=== PATIENT | female | born 1940 | race Caucasian/White ===

== ENCOUNTER → 2016-06-17 | Outpatient (CLI) | payer MEDICARE, OTHER ==
[~2016-06-17] MED LIST: ACHD5005 PO; CHOL10002 PO; CYAN100053 IM; CYAN10007 PO; DICL100G13 TOP; EZET1TAB44 PO; GABA-486 PO; GEMF600T3 PO; LEVO125T6 PO; METF-380 PO; OMEG1CAP51 PO; VALS1TAB12 PO
--- OUTSIDE RECORDS SUMMARY | 2016-06-17 13:28 | XMS REPORT | Continuity of Care Document ---
Author Author [facility] Organization [facility] Address Unknown Phone Unavailable Care Team Providers Care Captain Cannery Tender Name Role Phone PCP Unavailable Source Comments Some departments are not documenting in the electronic medical record. If you do not see the information that you expected, contact Release of Information in the Health Information Management department at [phone] for further assistance in locating additional records.[facility] Active Allergies and Adverse Reactions No Known Allergies Current Medications Prescription Sig. Disp. Refills Start End Date Status Date METFORMIN HCL (METFORMIN Take by mouth. Active PO) GABAPENTIN PO Take 125 mg by mouth. Active GEMFIBROZIL PO Take by mouth. Active Levothyroxine 125 mcg cap Take by mouth. Active EZETIMIBE/SIMVASTATIN Take by mouth. Active (VYTORIN 10-40 PO) hydroCHLOROthiazide Take 12.5 mg by mouth Active (HYDRODIURIL) 12.5 mg every morning. 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 Clinical Otolaryngology Lis Rosario AUD Sensorineural hearing Support loss of right ear with restricted hearing of left ear (Primary Dx); Mixed conductive and sensorineural hearing loss of left ear with restricted hearing of right ear 05/21/2016 Prep for Case Otolaryngology Connie Ryan MD Social History Tobacco Use Types Packs/Day Years Used Date Former Smoker Cigarettes 0 Alcohol Use Drinks/Week oz/Week Comments No Last Filed Vital Signs Vital Sign Reading Time Taken Blood Pressure 125/66 05/21/2016 11:23 AM [employer] Pulse 92 05/21/2016 11:23 AM [employer] Temperature - - Respiratory Rate - - Height 1.6 m (5' 3") 05/21/2016 11:23 AM [employer] Weight 63.141 kg (139 lb 3.2 oz) 05/21/2016 11:23 AM [employer] Body Mass Index 24.66 05/21/2016 11:23 AM [employer] Oxygen Saturation - - Plan of Care Date Type Specialty Providers Description 07/13/2016 Surgery Connie Ryan MD [facility] [address] ([place]) [place] [place] [address] [phone] (Fax) 07/30/2016 Appointment Otolaryngology Connie Ryan MD [address] [place] [address] [phone] (Fax) Health Maintenance Due Date Last Done Comments Physical (Comprehensive) 1947 Exam Pertussis Vaccine 1952 Tetanus Vaccine 1958 Breast Cancer Screening 1981 Colorectal Cancer 08/13/1991 Screening Shingles Vaccine 2001 Osteoporosis Screening 2006 Prevnar/Pneumovax (#1) 2006 Influenza Vaccine 02/06/2016 Procedures from Last 3 Months Procedure Name Priority Date/Time Associated Diagnosis Comments HEARING TEST-SCAN 06/04/2016 Results for this 9:08 AM [employer] procedure are in the results section. AUDIOMETRY WITH Routine 05/21/2016 TYMPANOMETRY 12:00 AM [employer] Results from Last 3 Months HEARING TEST-SCAN (06/04/2016 9:08 AM) Narrative Ordered by an unspecified provider. AUDIOMETRY WITH TYMPANOMETRY (05/21/2016)
--- NOTE | 2016-06-17 15:27 | Diagnostic Imaging Report ---
Three views of the left knee. INDICATION: Left knee pain. FINDINGS: There is no fracture, dislocation or radiopaque foreign body. There is no suprapatellar effusion identified. No significant arthritic changes seen. IMPRESSION: Unremarkable exam. Dictated by: Dictated on workstation # [id number]
--- NOTE | 2016-06-17 15:41 | Diagnostic Imaging Report ---
PROCEDURE: MRI lumbar spine. TECHNIQUE: Multiplanar, multisequence MRI of the lumbar spine was performed without contrast. INDICATION: Back pain. FINDINGS: The vertebral body heights are preserved. The alignment at the posterior spinal line is satisfactory. The discs demonstrate desiccation at all levels. There is a Schmorl's node with sclerotic changes seen at the upper aspect of L2 vertebral body. A similar finding in the lower endplate of the same vertebra is also noted. Mild marrow edema around L1/L2 disc is also noted. No suspicious marrow signal abnormality is seen. Small lesions with fat intensity components in L1 and T12 vertebral bodies are suggestive of hemangiomas. The cauda equina and conus medullaris appear grossly unremarkable. The conus terminates at mid L2 level. T12/L1: There is a minimal disc herniation. No spinal canal or foraminal stenosis. L1/2: There is mild disc bulge and mild facet hypertrophy. No spinal canal or foraminal stenosis. L2/3: There is a mild diffuse disc bulge and mild facet hypertrophy. No central canal stenosis. There is minimal narrowing of the lateral recess bilaterally. No significant foraminal stenosis. L3/4: There is a diffuse disc bulge and bilateral moderate facet hypertrophy. No central canal stenosis. There is bilateral lateral recess stenosis mild on the left and moderate on the right side abutting the descending L4 nerve roots. The foramina demonstrate mild to moderate narrowing on the right side and no significant narrowing on the left. L4/5: There is a diffuse disc bulge and mild to moderate facet hypertrophy. No central canal stenosis. There is mild narrowing of the lateral recess bilaterally. The foramina demonstrate mild stenosis on the right side and mild to moderate stenosis on the left. L5/S1: There is a minimal disc bulge and moderate facet hypertrophy. No central canal or lateral recess stenosis. The foramina demonstrate moderate stenosis bilaterally. IMPRESSION: There is disc and facet degenerative changes at multiple levels. There is multilevel mild to moderate stenosis involving the lateral recess and the foramina as described. Dictated by: Dictated on workstation # [id number]
== END ==
LOC: RAD 13:26
PROVIDERS: ATTEND Nurse Practitioner Family
DX: M54.16 Radiculopathy, lumbar region (principal)
CPT/HCPCS: 72148; 73562

== ENCOUNTER 2016-10-21 18:43 | Emergency (ER) | payer MEDICARE, OTHER ==
[~2016-10-21] VITALS: Ht 160 cm; Wt 63.5 kg
[2016-10-21] MEDS ORDERED: HYDR12.56 (19:05)
[2016-10-21] MEDS ORDERED: DULA0.75 (19:05)
[2016-10-21] MEDS ORDERED: SIMV40TA4 (19:05)
[2016-10-21] MEDS ORDERED: EZET10TA5 (19:05)
--- NOTE | 2016-10-21 19:25 | Diagnostic Imaging Report ---
INDICATION: Right hand injury 3 views of the right middle finger show no fracture, dislocation or other acute abnormalities. IMPRESSION: Negative right middle finger Dictated by: Dictated on workstation # [id number]
[2016-10-21] MEDS ORDERED: TRAM50TA2 PO (20:28)
[2016-10-21] MEDS ORDERED: RX-TRAMADOL 50 MG (ULTRAM) TAB PPK#4 PO STA (20:30)
--- NOTE | 2016-10-21 20:30 | ED Upper Extremity ---
General Chief Complaint: Upper Extremity Stated Complaint: R FINGER PAIN Nursing Triage Note: CAUGHT FINGER IN DOOR WINDOW Nursing Sepsis Screen: No Definite Risk Source: patient Exam Limitations: no limitations History of Present Illness Time seen by provider: 20:07 Initial Comments 76-year-old female patient presents to the emergency department with complaints of right third finger injury and pain. Patient states she rolled the middle finger up in the car window. Reports yanking the finger from the window without rolling the window down. Onset: this evening Pain/Injury Location: right 3rd finger Method of Injury: other (see HPI) Modifying Factors: Improves With Immobilization, Worse With Movement Allergies and Home Medications Allergies Coded Allergies: No Known Drug Allergies (Unverified , 11/15/13) Home Medications Diclofenac Sod 100 Gm Gel, 100 GM TOP NEEDED PRN for NEUROPATHY, (Reported) Dulaglutide 0.75 Mg/0.5 Ml Pen.injctr, #6 (Reported) Ezetimibe 10 Mg Tablet, #90 (Reported) Gabapentin 100 Mg Capsule, 300 MG PO PM, (Reported) Gabapentin 100 Mg Capsule, 200 MG PO AM, (Reported) Hydrochlorothiazide 12.5 Mg Tablet, #30 (Reported) Levothyroxine Sodium 125 Mcg Tablet, 1 EACH PO DAILY, (Reported) Metformin Hcl 1,000 Mg Tablet, 1 EACH PO BID WITH MEALS, (Reported) Simvastatin 40 Mg Tablet, #90 (Reported) Tramadol HCl 50 Mg Tablet, 50 MG PO Q4H PRN for pain, #14 Ref 0 Prescribed by: HAL BLANC on 10/21/162027 Constitutional: no symptoms reported Musculoskeletal: see HPI, joint pain, joint swelling Skin: change in color (ecchymosis rt 3rd finger) Psychiatric/Neurological: Denies Numbness, Denies Paresthesia, Denies Tingling , Denies Weakness All Other Systems Reviewed Negative Unless Noted: Yes (Negative excepted noted.) Past Yffweml-Njsirz-Cqmbvv Hx Patient Social History Alcohol Use: Denies Use Recreational Drug Use: No Smoking Status: Never a Smoker 2nd Hand Smoke Exposure: No Recent Foreign Travel: No Contact w/Someone Who Travel: No Recent Infectious Disease Expo: No Recent Hopitalizations: No Immunizations Up To Date Tetanus Booster (TDap): Unknown Date of Pneumonia Vaccine: Mar 07, 2010 Seasonal Allergies Seasonal Allergies: No Surgeries HX Surgeries: Yes (GASTRIC BYPASS, ) Respiratory Hx Respiratory Disorders: Yes Respiratory Disorders: Asthma Cardiovascular Cardiac Disorders: High Cholesterol, Hypertension Neurological Hx Neurological Disorders: No Reproductive System : No Hx Reproductive Disorders: No TOBACCO BLENDER History: Menopausal Genitourinary Hx Genitourinary Disorders: No Gastrointestinal Hx Gastrointestinal Disorders: No Musculoskeletal Hx Musculoskeletal Disorders: No Endocrine Hx Endocrine Disorders: Yes Endocrine Disorders: Hypothyroidsim, Diabetes, Non-Insulin dep HEENT HX ENT Disorders: Yes (GLASSES) Loss of Vision: Denies Hearing Impairment: Hard of Hearing Cancer Hx Cancer: No Psychosocial Hx Psychiatric Problems: No Integumentary HX Skin/Integumentary Disorder: Yes Blood Transfusions Hx Blood Disorders: No Adverse Reaction to a Blood Tr: No Reviewed Nursing Assessment Reviewed/Agree w Nursing PMH: Yes Family Medical History Significant Family History: No Pertinent Family Hx Family Medial History: Cancer 19 MOTHER G8 BROTHER G8 SISTER Family history: Cardiovascular disease 19 MOTHER Family history: Diabetes mellitus 19 MOTHER History of - disorder G8 BROTHER (MS ) Physical Exam Vital Signs Vital Sign - Last 12Hours 10/21/16 19:05 Temp 98.8 Pulse 90 Resp 18 B/P (MAP) 109/83 Pulse Ox 95 O2 Delivery Room Air Capillary Refill : Less Than 3 Seconds General Appearance: WD/WN, no apparent distress Cardiovascular: normal peripheral pulses Elbow/Forearm: normal inspection, non-tender, no evidence of injury, normal ROM , Right Wrist: Yes normal inspection, Yes non-tender, Yes no evidence of injury, Yes normal ROM Hand: Right, bone tenderness (distal rt 3rd finger), ecchymosis (rt 3rd finger nail fold ecchymosis. (-) subungual hematoma.), limited ROM (rt distal 3rd finger extensor tendons difficult to evaluate due to the amount of swelling at the DIP joint. ), nail injury (rt 3rd finger), soft tissue tenderness (rt 3rd finger), swelling (distal rt 3rd finger.) Neurologic/Tendon: normal sensation, responds to pain, other (rt distal 3rd finger extensor tendons difficult to evaluate due to the amount of swelling at the DIP joint. ) Neurologic/Psychiatric: alert, normal mood/affect, oriented x 3 Skin: No cyanosis, No cool, ecchymosis (rt 3rd finger nail fold ecchymosis. (- ) subungual hematoma.) Progress/Results/Core Measures Results/Orders My Orders Orders - HAL BLANC Finger(S) (10/21/16 19:02) Rx-Tramadol Hcl (Rx-Ultram) (10/21/16 20:30) Vital Signs/I&O Vital Sign - Last 12Hours 10/21/16 10/21/16 19:05 20:37 Temp 98.8 98.5 Pulse 90 82 Resp 18 18 B/P (MAP) 109/83 Pulse Ox 95 97 O2 Delivery Room Air Blood Pressure Mean: 92 Diagnostic Imaging Diagonstic Imaging: Xray Plain Films/CT/US/NM/MRI: other (rt 3rd finger) Comments FINGER(S) INDICATION: Right hand injury 3 views of the right middle finger show no fracture, dislocation or other acute abnormalities. IMPRESSION: Negative right middle finger Dictated by: Dictated on workstation # [id number] Reviewed: Reviewed by Me (radiology report reviewed by me) Departure Communication Progress Notes Diagnostic findings discussed with the patient. Patient placed in an AlumaFoam finger splint. Plan for discharge to home. Patient instructed follow-up with her primary care physician for recheck if no improvement in symptoms in 7-10 days. Impression Impression: Primary Impression: Contusion of middle finger with damage to nail Qualified Codes: S60.131A - Contusion of right middle finger with damage to nail, initial encounter Disposition: HOME, SELF-CARE Condition: Improved Departure-Patient Inst. Decision time for Depature: 20:25 Referrals: IVCKEY BECKETT DO (PCP) Primary Care Physician TANVI SCHWAB (Family) Primary Care Physician Patient Instructions: Contusion (DC), NAIL INJURY Add. Discharge Instructions: All discharge instructions reviewed with patient and/or family. Voiced understanding. Medications as directed. Tylenol over the counter as directed for pain. Motrin 400 mg by mouth every 4-6 hours as needed for pain. Elevate right hand on pillows. Ice pack for 20 minute intervals as needed for pain. Finger splint as instructed. Follow-up with your family practitioner if needed. Return to the emergency department for worsened symptoms or any other concerns. Scripts Tramadol HCl (Tramadol HCl) 50 Mg Tablet 50 MG PO Q4H Y for pain, #14 TAB 0 Refills Prov: HAL BLANC 10/21/16 Work/School Note: Work Release Form Date Seen in the Emergency Department: October 21, 2016 Return to Work: October 22, 2016 Other Restrictions Listed Below: left hand activities x7 days HAL BLANC October 21, 2016 20:30
[2016-10-21 20:37] VITALS: BP 112/84
== END 2016-10-21 20:39 | disposition home or self-care (01) ==
LOC: EDUNIT# 18:43 → ER 18:45
DX: S60.131A Contusion of right middle finger with damage to nail, initial encounter (principal); E11.9 Type 2 diabetes mellitus without complications; Z79.84 Long term (current) use of oral hypoglycemic drugs; Z98.84 Bariatric surgery status; W23.0XXA Caught, crushed, jammed, or pinched between moving objects, initial encounter; V48.1XXA Car passenger injured in noncollision transport accident in nontraffic accident, initial encounter; Y92.810 Car as the place of occurrence of the external cause; Y99.8 Other external cause status
CPT/HCPCS: 29130; 73140

== ENCOUNTER → 2016-12-10 | Outpatient (CLI) | payer MEDICARE, OTHER ==
[~2016-12-10] MED LIST changes: +DULA0.75; +EZET10TA5; +HYDR12.56; +SIMV40TA4; +TRAM50TA2 PO
--- NOTE | 2016-12-11 09:16 | Diagnostic Imaging Report ---
EXAM: Bilateral screening mammogram The current study was also evaluated with a Computer Aided Detection (CAD) system. Indication: Screening. No current complaints stated on the questionnaire. COMPARISON: 08/06/2015 FINDINGS: The breasts are composed of heterogeneously dense parenchyma which would decrease mammographic sensitivity. There is an asymmetry along the medial aspect of the left CC projection measuring 1 cm in size. There is questionable correlate in the inferior aspect of the left MLO view or separate asymmetry seen. The right breast is dense with no definitive change. Stable benign-appearing calcifications noted. IMPRESSION: Dense breasts. Focal compression views to medial and inferior left breast asymmetries and bilateral ultrasound evaluation recommended. BI-RADS 0. Dictated by: Dictated on workstation # [id number]
== END ==
LOC: RAD 13:39
PROVIDERS: ATTEND Nurse Practitioner Community Health
DX: Z12.31 Encounter for screening mammogram for malignant neoplasm of breast (principal)
CPT/HCPCS: 77067

== ENCOUNTER → 2016-12-21 | Outpatient (CLI) | payer MEDICARE, OTHER ==
--- NOTE | 2016-12-21 19:03 | Diagnostic Imaging Report ---
EXAM: Bilateral breast ultrasound. INDICATION: Left breast asymmetries and bilateral dense breasts. FINDINGS: The four-quadrant central retroareolar regions of each breast were scanned with no underlying abnormality. IMPRESSION: Negative study. The asymmetries seen in the left breast are likely related to summation artifact of parenchyma. Six-month followup left mammogram is recommended to reevaluate. BI-RADS 2. ACR BI-RADS Category 2: Benign findings. Result letter will be mailed to the patient. Note: At least 10% of breast cancer is not imaged by mammography. Dictated by: Dictated on workstation # [id number]
--- NOTE | 2016-12-21 19:36 | Diagnostic Imaging Report ---
Left breast diagnostic mammogram. The current study was also evaluated with a Computer Aided Detection (CAD) system. INDICATION: Asymmetries in the periareolar and medial aspects of the left breast. FINDINGS: Tomographic and 2-D views are obtained in the true lateral projection and focal compression views of the areas of asymmetries. Additional views demonstrate again the heterogeneously dense parenchyma in the breasts with no definitive underlying mass seen. IMPRESSION: Findings are suggestive of summation artifacts probably explaining the asymmetries seen. Ultrasound evaluation pending. ACR BI-RADS Category 0: Incomplete. (Needs additional imaging evaluation). Result letter will be mailed to the patient. Note: At least 10% of breast cancer is not imaged by mammography. Dictated by: Dictated on workstation # [id number]
== END ==
LOC: RAD 13:39
PROVIDERS: ATTEND Nurse Practitioner Community Health
DX: N64.89 Other specified disorders of breast (principal)

== ENCOUNTER → 2017-02-01 | Outpatient (CLI) | payer MEDICARE, OTHER ==
[~2017-02-01] VITALS: Ht 160 cm; Wt 65.4 kg
[~2017-02-01] MED LIST changes: +DULA0.75 SQ; +EZET10TA5 PO; +HYDR12.56 PO; +LEVO112T55 PO; +METF-479 PO; +SIMV40TA4 PO
[2017-02-01 15:18] VITALS: BP 122/71
== END ==
LOC: PREOP 15:04
PROVIDERS: ATTEND Podiatrist Foot & Ankle Surgery
DX: Z01.818 Encounter for other preprocedural examination (principal); M20.41 Other hammer toe(s) (acquired), right foot
CPT/HCPCS: 87081

== ENCOUNTER 2017-02-05 10:45 | Day surgery (SDC) | payer MEDICARE, OTHER ==
[~2017-02-05] VITALS: Ht 160 cm; Wt 65.4 kg
--- OUTSIDE RECORDS SUMMARY | 2017-02-05 10:50 | XMS REPORT | Clinical Summary ---
Author Author [facility] Organization [facility] Address Unknown Phone Unavailable Care Team Providers Care Lock Tender Name Role Phone PCP Unavailable Source Comments Some departments are not documenting in the electronic medical record. If you do not see the information that you expected, contact Release of Information in the Health Information Management department at [phone] for further assistance in locating additional records.[facility] Allergies No Known Allergies Current Medications Prescription Sig. Disp. Refills Start End Date Status Date METFORMIN HCL (METFORMIN Take 500 mg by mouth. 2 Active PO) tabs qAM and 1 tab qHS GABAPENTIN PO Take 125 mg by mouth. 2 Active tabs qAM and 3 tabs qHS Levothyroxine 125 mcg cap Take by mouth. Active EZETIMIBE/SIMVASTATIN Take by mouth at bedtime Active (VYTORIN 10-40 PO) daily. hydroCHLOROthiazide Take 12.5 mg by mouth Active (HYDRODIURIL) 12.5 mg every morning. tablet cyanocobalamin(DIL) Inject into the muscle Active (VITAMIN B-12, RUBRAMIN) every 7 days. 100 mcg/mL vitamins, multi PED Chew 1 Gummy by mouth Active chewable daily. FLAXSEED OIL (OMEGA 3 PO) Take 1 Tab by mouth Active daily. CHOLECALCIFEROL (VITAMIN Take 1 Tab by mouth Active D3) (VITAMIN D3 PO) daily. GARLIC PO Take 1 Tab by mouth Active daily. 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, neural 05/21/2016 Social History Tobacco Use Types Packs/Day Years Used Date Former Smoker Cigarettes 3 25 Quit: 06/07/1985 Smokeless Tobacco: Never Used Alcohol Use Drinks/Week oz/Week Comments No Sex Assigned at Date Recorded Not on file Last Filed Vital Signs Vital Sign Reading Time Taken Blood Pressure 126/75 07/30/2016 1:39 PM [employer]CHIT[employer] Pulse 77 07/30/2016 1:39 PM [employer]CH[employer] Temperature 36.6 C (97.9 F) 07/13/2016 11:54 AM [employer]CH[employer] Respiratory Rate - - Oxygen Saturation 97% 07/13/2016 12:30 PM [employer]CH[employer] Inhaled Oxygen - - Concentration Weight 66.9 kg (147 lb 6.4 oz) 07/30/2016 1:39 PM [employer]CH[employer] Height 160 cm (5' 3") 07/30/2016 1:39 PM [employer]CH[employer] Body Mass Index 26.11 07/30/2016 1:39 PM 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
[2017-02-05 10:55] VITALS: BP 84/64
[2017-02-05] MEDS ORDERED: CATHETER FLUSH 10 ML SYR IV PRN (11:00)
[2017-02-05] MEDS ORDERED: ceFAZolin 1 GM/NS 50 ML IVPB IV ONE ×2 (11:00)
[2017-02-05] MEDS ORDERED: LACTATED RINGERS 1,000 ML IV PRN (11:38)
[2017-02-05] MEDS ORDERED: proPOfol 200 MG/20 ML (DIPRIVAN) VIAL IV ONE (11:38)
[2017-02-05] MEDS ORDERED: MIDAZOLAM 2 MG/2 ML (VERSED) VIAL ONE (11:39)
[2017-02-05] MEDS ORDERED: fentaNYL INJECTION 100 MCG/2 ML AMP ONE (11:40)
--- NOTE | 2017-02-05 11:44 | Physical Therapy Pre-Op Eval ---
PT Pre-Surgical Assessment Type of Surgery Type of Surgery: /5th hammer toe repair right foot Prior Level of Function Current Living Status: Alone Locomotion (Upon Admit): Independent PLOF DME: None Subjective Subjective Patient reports she will have family with her upon dismissal. Home: Apartment Current Living Status: Alone Entry Into Home: Stairs With Railing Steps Into Home: 2 Steps Accessories: Railing Present Motor Control Motor Control: Motor Control WNL ROM ROM: WFL, except focal deficit Strength Strength: WFL Transfers Transfers (B, C, W/C) (FIM): 7 Gait Gait (FIM): 5 Gait Distance (FIM): 5 Gait Assistive Device: FWW Weight Bearing Restriction: Non Weight Bearing Location Restriction: R LE WBS (Ord/Comment): knee scooter and FWW NWB right foot Treatment Rendered Treatment: Patient instructed in assistive device, supported ambulation. Patient instructed in and given written program of ROM and strengthening exercises to be preformed post-op. Patient instructed in movement precautions where applicable. Patient demonstrates understandings of post-operative therapy protocol including gait pattern and exercise program. Pre-operative instruction completed; await physical therapy orders after surgery. Treatment Goal Met: Yes Assessment Goals Acheived: I Ambulation w/ FWW, Understands P-op Precaut Charges/GCodes Time In: 1100 Time Out: 1115 Total Billed Treatment Time: 15 Total Billed Treatment 1 visit EVLowC 15 min G Codes Necessary: Yes PT/OT Therapy GCodes Therapy Functional Limitation: Physical Therapy Test(s)/Tool used to determine: Level of Assistance Scale Functional Limitation-Current Charge Code: MOBCUR Modifier: CI Functional Limitation-Goal Charge Code: MOBGOAL Modifier: CI Functional Limitation-D/C Charge Codes: MOBDC Modifier: CI JONO BUTLER PT Feb 05, 2017 11:44
[2017-02-05] MEDS ORDERED: LIDOCAINE 1% INJ 20 ML (XYLOCAINE) VIAL ONE (11:47)
[2017-02-05] MEDS ORDERED: BUPIVACAINE 0.5% 30 ML (SENSORCAINE) VIAL ONE (11:47)
--- NOTE | 2017-02-05 11:51 | Progress Note-Pre Operative ---
Pre-Operative Progress Note H&P Reviewed The H&P was reviewed, patient examined and no changes noted. Date Seen by Provider: Feb 05, 2017 Time Seen by Provider: 11:50 Date H&P Reviewed: Feb 05, 2017 Time H&P Reviewed: 11:50 Pre-Operative Diagnosis: Hammertoes 4th and 5th right foot. JESÚS WATTS DPM Feb 05, 2017 11:51 am
[2017-02-05] MEDS ORDERED: LIDOCAINE PF 2% 5 ML (XYLOCAINE) VIAL ONE (13:09)
[2017-02-05] MEDS ORDERED: LACTATED RINGERS 1,000 ML IV SCH (13:11)
--- NOTE | 2017-02-05 13:11 | Progress Note-Post Operative ---
Post-Operative Progess Note Surgeon (s)/Interstate Bus Dispatcher (s) Surgeon JESÚS WATTS DPM Interstate Bus Dispatcher: NONE Pre-Operative Diagnosis Hammertoes 4th and 5th right foot. Post-Operative Diagnosis Same Procedure & Operative Findings Date of Procedure 02/05/17 Procedure Performed/Findings Arthroplasty (reduction of hammertoes) right 4th and 5th toes Anesthesia Type MAC Estimated Blood Loss Estimated blood loss (mL): Minimal Specimens/Packing Specimens Removed None JESÚS WATTS DPM Feb 05, 2017 1:10 pm
[2017-02-05] MEDS ORDERED: CEPH500C PO (13:13)
[2017-02-05] MEDS ORDERED: HYDR-3812 PO (13:13)
[2017-02-05] MEDS ORDERED: HYDROcodone/APAP 5 MG/325 MG (LORTAB) TAB PO PRN (13:15)
[2017-02-05 13:35] VITALS: BP 163/67
[2017-02-05 14:05] VITALS: BP 104/65
[2017-02-05 14:15] VITALS: BP 104/65
--- NOTE | 2017-02-05 14:49 | Diagnostic Imaging Report ---
INDICATION: Postop. FINDINGS: There has been resection of the head of the fourth and fifth proximal phalanges. The interphalangeal joints that remain show diffuse arthritic disease as does the first MP joint. No changes are seen to indicate osteomyelitis. Overall alignment is good. IMPRESSION: Resection of the distal head of the fourth and fifth proximal phalanges in the right foot. Dictated by: Dictated on workstation # [id number]
--- NOTE | 2017-02-06 10:06 | OPERATIVE REPORT ---
DATE OF SERVICE: 02/05/2017 SURGEON: Courtney Watts DPM PREOPERATIVE DIAGNOSIS: Hammer digit syndrome, right fourth and fifth digits. POSTOPERATIVE DIAGNOSIS: Hammer digit syndrome, right fourth and fifth digits. PROCEDURE: Arthroplasty right fourth and fifth digits (reduction of hammertoes). WOUND CLASS: Clean. ANESTHESIA: Monitored anesthesia care. HEMOSTASIS: Pneumatic ankle tourniquet at 250 mmHg. 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 Conservative therapy has met with unsatisfactory results, but we have finally gotten the ulceration to heal and so she is agreeable to surgical intervention at this point to help prevent further ulcerations and complications. No guarantees were extended to the patient and she is willing to proceed. DESCRIPTION OF PROCEDURE: The patient was brought back to the operating table and placed in a secure supine position. Appropriate timeout was performed. Anesthesia was achieved utilizing 12 mL of 1:1 mixture of 1% Xylocaine and 0.5% Marcaine injected in a local infusion to the fourth and fifth rays of the right foot. A pneumatic ankle tourniquet was placed on the right lower extremity over several layers of padding. The right foot was then prepped and draped in a normal sterile manner. The right foot was then elevated and allowed to exsanguinate after which the tourniquet was inflated to 250 mmHg. Attention was then directed to the dorsal aspect of the right fourth toe where a 2 cm longitudinal linear incision was created. The incision was deepened in the same plane with great care to identify and retract all vital neurovascular structures. Only necessary blood vessels were cauterized as encountered. The incision was deepened sharply down to the extensor tendon where a transverse tenotomy was performed. The extensor tendon was reflected proximally and the medial and lateral collateral ligaments released exposing the hypertrophic head of the proximal phalanx which was resected utilizing power sagittal saw. The wound was flushed with copious amounts of normal saline and closure was then performed in layers. Deep closure was performed with 4-0 Vicryl, superficial with 4-0 Vicryl and skin closure with 4-0 Prolene in a horizontal mattress type stitch. Attention was then directed to the right fifth toe where adductovarus contracture was noted. A 1 cm curvilinear incision was created from proximal lateral to distal medial. A second incision was made similar to the first and a skin island was then removed in total overlying the head of the proximal phalanx. The incision was deepened down to the extensor tendon where a transverse tenotomy was performed. The medial and lateral collateral ligaments were also released. This exposed the hypertrophic head of the proximal phalanx which was resected with a power sagittal saw. The wound was flushed with copious amounts of normal saline. These 2 procedures reduced the tension in between the 2 digits very nicely. Closure was then performed to the right fifth toe with 4-0 Vicryl for deep and superficial closure as well as 4-0 Prolene in a simple interrupted type stitch. Due to the orientation of the incision and the skin removed, the adductovarus rotation of the toe was reduced nicely. The wound was then dressed with Betadine-soaked Adaptic. The tourniquet was released noting the appropriate capillary fill time to all digits of the right foot. Sterile 4x4s, sterile Kerlix and Coban wrap was then applied. The patient was instructed to be partial weightbearing with crutches or walker postoperatively. She was given a prescription for Keflex as well as Vicodin. She is to follow up in my office in one week period of time or sooner if necessary. Job ID: [id number] DocumentID: [id number] Dictated Date: 02/05/2017 13:18:56 Commercial Maintenance Technician Date: 02/06/2017 10:06:13 Dictated By: COURTNEY WATTS DPM
== END 2017-02-05 14:15 | disposition home or self-care (01) ==
LOC: SDC 10:45
PROVIDERS: ATTEND Podiatrist Foot & Ankle Surgery
DX: M20.41 Other hammer toe(s) (acquired), right foot (principal); E11.9 Type 2 diabetes mellitus without complications; I10 Essential (primary) hypertension; E78.5 Hyperlipidemia, unspecified; Z79.899 Other long term (current) drug therapy; Z87.891 Personal history of nicotine dependence
CPT/HCPCS: 73620; 82962

== ENCOUNTER → 2018-10-28 | Outpatient (CLI) | payer MEDICARE ==
[~2018-10-28] MED LIST changes: +CEPH500C PO
== END ==
LOC: CARD 09:24
PROVIDERS: ATTEND Internal Medicine Cardiovascular Disease
DX: R00.2 Palpitations (principal); R06.02 Shortness of breath; I08.3 Combined rheumatic disorders of mitral, aortic and tricuspid valves; E11.9 Type 2 diabetes mellitus without complications
CPT/HCPCS: 93306

== ENCOUNTER → 2018-11-02 | Outpatient (CLI) | payer MEDICARE ==
[~2018-11-02] MED LIST changes: +CATHETER FLUSH 10 ML SYR IV PRN
[2018-11-02 08:46] VITALS: BP 130/70
[2018-11-02 08:52] VITALS: BP 117/69
--- NOTE | 2018-11-02 17:17 | STRESS TEST ---
DATE OF SERVICE: 11/02/2018 EXERCISE MYOVIEW STRESS TEST REPORT REFERRING PHYSICIAN: Dr. Anige Porter, [facility]. Baseline heart rate is 84, baseline blood pressure 146/68. Baseline EKG is sinus rhythm with no ischemic changes. In summary, the patient was injected with 10.4 mCi of technetium-99 Myoview and the resting images were obtained. Then, the patient started exercising with a baseline heart rate, blood pressure and EKG mentioned above. The patient was able to exercise for a total of 4 minutes on standard Xavier protocol. With peak exercise level, the patient achieved over 85% of maximum expected heart rate. There were minimal nondiagnostic EKG changes. Blood pressure was 194/59. During recovery, heart rate and blood pressure returned to baseline. EKG returned to baseline. The resting and stress images were reviewed and compared in the short axis, horizontal long axis, and vertical long axis views. Review of the images showed breast attenuation with typical female pattern. No significant ischemia or infarction. SSS is 3, SDS 3, TID value 0.91. On the gated images, the left ventricle appeared to be normal size with normal contractility. Calculated ejection fraction is 67%. CONCLUSION: 1. Fair exercise tolerance, a total of 4 minutes on standard Xavier protocol, achieving 85% of maximum expected heart rate. 2. Nondiagnostic EKG changes with exercise returned to baseline during recovery. 3. Hypertensive response to exercise with peak blood pressure 194/59, returned to baseline during recovery. 4. Breast attenuation with no significant ischemia or infarction on SPECT images. 5. Normal left ventricular size with normal contractility. Calculated ejection fraction is 67%. Job ID: [id number] DocumentID: [id number] Dictated Date: 11/02/2018 16:43:18 Radiation Engineer Date: 11/02/2018 17:16:38 Dictated By: KAREN RUSS MD
== END ==
LOC: CARD 06:59
PROVIDERS: ATTEND Internal Medicine Cardiovascular Disease
DX: R00.2 Palpitations (principal); R06.02 Shortness of breath; I08.1 Rheumatic disorders of both mitral and tricuspid valves; I51.7 Cardiomegaly; E11.9 Type 2 diabetes mellitus without complications
CPT/HCPCS: 78452; 93017

== ENCOUNTER → 2020-05-14 | Outpatient (CLI) | payer MEDICARE ==
[~2020-05-14] MED LIST changes: -CATHETER FLUSH 10 ML SYR IV PRN; +EZET10TA17; +EZET10TA17 PO; -EZET10TA5; -EZET10TA5 PO; +SIMV40TA25; +SIMV40TA25 PO; -SIMV40TA4; -SIMV40TA4 PO; -TRAM50TA2 PO; +TRM50T PO
--- NOTE | 2020-05-14 14:42 | Diagnostic Imaging Report ---
INDICATION: Routine screening. COMPARISON is made with prior mammograms from 01/25/2018 and 12/10/2016. 2-D and 3-D bilateral screening mammography was performed with CAD. Both breasts remain heterogeneously dense, limiting the sensitivity of mammography. Scattered benign calcifications are noted bilaterally. No spiculated mass or malignant appearing microcalcifications are seen. Axillae are unremarkable. IMPRESSION: BI-RADS Category 2. No mammographic features suspicious for malignancy are identified. ACR BI-RADS Category 2: Benign findings. Result letter will be mailed to the patient. Note: At least 10% of breast cancer is not imaged by mammography. Dictated by: Dictated on workstation # [id number]
--- NOTE | 2020-05-14 14:48 | Diagnostic Imaging Report ---
INDICATION: Postmenopausal. COMPARISON: None. FINDINGS: The bone mineral density of the hips and spine was measured. There are no prior studies available for comparison. The T-score for the spine is -0.1. The total T-score for the left hip is -0.8 and for the right hip -0.6. The T-score for the right femoral neck is -1.0. All of these T-score values are within normal limits. However, the T-score for left femoral neck is -1.1. This does indicate mild osteopenia. AP Spine L1-L4: [BMD (g/cm2): 1.191] [T-Score: -0.1] [Z-Score: 1.6] [BMD Previous: NA] [BMD % Change: NA] LT Hip Neck: [BMD (g/cm2): 0.888] [T-Score: -1.1] [Z-Score: 0.9] LT Hip Total: [BMD (g/cm2):0.908] [T-Score:-0.8] [Z-Score: 1.1] [BMD Previous: NA] [BMD % Change: NA] RT Hip Neck: [BMD (g/cm2):0.900] [T-Score:-1.0] [Z-Score:1.0] RT Hip Total: [BMD (g/cm2):0.936] [T-score:-0.6] [Z-Score:1.3] [BMD Previous:NA] [BMD % Change:NA] *Indicates significant change from prior examination based on 95% confidence level. World Health Organization criteria for BMD interpretation classify patients as Normal (T-score at or above -1.0), Osteopenic (T-score between -1.0 and -2.5) or Osteoporotic (T-score at or below -2.5). LIMITATIONS AND MODIFICATION: None. FRACTURE RISK (FRAX SCORE): The ten year probability of (%): Major Osteoporotic Fracture: [11.5] Hip Fracture: [2.2] IMPRESSION: 1. There is mild osteopenia of the left femoral neck. The T-score values for the spine, the hips and the right femoral neck are within normal limits, however. 2. See below National Osteoporosis Foundation guidelines on when to potentially initiate pharmacologic therapy. Based on the National Osteoporosis Foundation Guidelines, pharmacologic treatment should be initiated in any of the following, unless clinical conditions suggest otherwise: * Any patient with prior fragility fracture of the hip or vertebrae. A spine fracture indicates 5X risk for subsequent spine fracture and 2X risk for subsequent hip fracture. * Osteoporosis (T-score <-2.5). * Postmenopausal women and men age 50 and older with low bone mass/osteopenia (T-score between -1.0 and -2.5) by DXA and 10-year major osteoporotic fracture greater than 20% or a 10-year probability of hip fracture greater than 3%. These fracture risks are supplied above in the FRAX score, if applicable. * Clinician judgement and/or patient preferences may indicate treatment for people with 10-year fracture probabilities above or below these levels. Dictated by: Dictated on workstation # [id number]
== END ==
LOC: RAD 13:11
PROVIDERS: ATTEND Nurse Practitioner Community Health
DX: Z12.31 Encounter for screening mammogram for malignant neoplasm of breast (principal); M85.88 Other specified disorders of bone density and structure, other site; N95.1 Menopausal and female climacteric states
CPT/HCPCS: 77063; 77067; 77080

== ENCOUNTER → 2020-07-31 | Outpatient (CLI) | payer MEDICARE | LOC: CARD 11:00 | PROVIDERS: ATTEND Internal Medicine Cardiovascular Disease | DX: I10 Essential (primary) hypertension (principal) ==

== ENCOUNTER 2022-12-31 11:46 | Observation (INO) | payer MEDICARE ==
[2022-12-31] VITALS (7 sets, daily range): BP systolic 126–160; BP diastolic 59–81
[~2022-12-31] VITALS: Ht 160 cm; Wt 74.0 kg
--- NOTE | 2022-12-31 11:53 | ED Neurological Problem ---
General Chief Complaint: Neuro-Stroke Like Symptoms Stated Complaint: UNRESPONSIVE Nursing Triage Note: ARRIVED VIA EMS. WAS AT HER WORK AND PASSED OUT. EMS REPORTS PASSING OUT SEVERAL TIMES ON THE WAY HERE. UPON ARRIVAL PT WILL WAKE UP AND TALK. CONFUSED. WILL CLOSE EYES AND QUIT TALKING MID CONVERSATION. EMS REPORTS BLOOD SUGAR 276. LAST WELL KNOWN TIME 1047. History of Present Illness Date Seen by Provider: Dec 31, 2022 Time Seen by Provider: 11:45 Initial Comments Patient is an 82-year-old female who presents to the emergency room by EMS after a syncopal event. 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 EMS reports that she also had syncope while she was laying on the cot in the ambulance. She would talk and then be unresponsive midsentence. Patient is arousable to loud voice. She does answer questions appropriately. Her vital signs are completely stable. She denies headache. She denies intoxicants. She denies chest pain or shortness of breath. She is not nauseated. She is noted to move all 4 extremities to command. She denies recent illnesses. She states she has never done this before. Sugar prior to arrival was 276. She has diabetes. Timing/Duration: 1 hour Associated Symptoms: denies symptoms Allergies and Home Medications Allergies Coded Allergies: No Known Drug Allergies (Unverified , 02/01/17) Patient Home Medication List Home Medication List Reviewed: Yes Cephalexin (Cephalexin) 500 Mg Capsule, 1 CAP PO TID Prescribed by: JESÚS WATTS on 02/05/17 1313 Dulaglutide (Trulicity) 0.75 Mg/0.5 Ml Pen.injctr, 0.75 MG SQ DAILY, (Reported) Entered as Reported by: ROSALIA WOODARD on 02/01/17 1538 Ezetimibe (Zetia) 10 Mg Tablet, 10 MG PO DAILY, (Reported) Entered as Reported by: ROSALIA WOODARD on 02/01/17 153 Gabapentin (Gabapentin) 100 Mg Capsule, 200 MG PO Q AM, (Reported) Entered as Reported by: ROSALIA WOODARD on 02/01/17 153 Gabapentin (Gabapentin) 100 Mg Capsule, 300 MG PO Q PM, (Reported) Entered as Reported by: ROSALIA WOODARD on 02/01/171537 Last Action: Continued Hydrochlorothiazide (Hydrochlorothiazide) 12.5 Mg Tablet, 12.5 MG PO DAILY, (Reported) Entered as Reported by: ROSALIA WOODARD on 02/01/171537 Hydrocodone Bit/Acetaminophen (Lortab 5 Mg Tablet) 1 Each Tablet, 1-2 TAB PO Q4-6HR PRN for PAIN Prescribed by: JESÚS WATTS on 02/05/17 1313 Levothyroxine Sodium (Levothyroxine Sodium) 112 Mcg Tablet, 112 MCG PO DAILY, (Reported) Entered as Reported by: ROSALIA WOODARD on 02/01/171537 Metformin HCl (Metformin HCl ER) 1,000 Mg Tab.er.24, 1,000 MG PO BID, (Reported) Entered as Reported by: ROSALIA WOODARD on 02/01/171537 Simvastatin (Simvastatin) 40 Mg Tablet, 40 MG PO HS, (Reported) Entered as Reported by: ROSALIA WOODARD on 02/01/171537 Review of Systems Review of Systems Constitutional: see HPI Ears, Nose, Mouth, Throat: no symptoms reported Respiratory: no symptoms reported Cardiovascular: no symptoms reported Gastrointestinal: no symptoms reported Genitourinary: no symptoms reported Musculoskeletal: no symptoms reported Skin: no symptoms reported Psychiatric/Neurological: No Symptoms Reported All Other Systems Reviewed Negative Unless Noted: Yes Past Rldlgij-Cwgaqf-Llbupi Hx Immunizations Up To Date Tetanus Booster (TDap): Unknown Seasonal Allergies Seasonal Allergies: No Past Medical History Surgeries: Yes (GASTRIC BYPASS, COCLEAR IMPLANT) Hysterectomy Respiratory: Yes Asthma Cardiac: Yes High Cholesterol, Hypertension Neurological: No 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 Sexually Transmitted Disease: No HIV/AIDS: No Genitourinary: No Gastrointestinal: No Musculoskeletal: No Arthritis Endocrine: Yes Hypothyroidsim, Diabetes, Non-Insulin dep HEENT: No Loss of Vision: Denies Hearing Impairment: Hard of Hearing Cancer: No Thyroid What Type of Treatment Did You: Surgical Intervention Psychosocial: No Integumentary: No Blood Disorders: No Adverse Reaction/Blood Tranf: No (N/A) Family Medical History Cancer 19 MOTHER G8 BROTHER G8 SISTER Family history: Cardiovascular disease 19 MOTHER Family history: Diabetes mellitus 19 MOTHER History of - disorder G8 BROTHER (MS ) No Pertinent Family Hx Physical Exam Vital Signs Vital Signs - First Documented 12/31/22 12/31/22 11:46 15:10 Temp 37.6 Pulse 86 Resp 16 B/P (MAP) 128/64 (85) Pulse Ox 94 O2 Delivery Room Air O2 Flow Rate 2.00 Capillary Refill : Less Than 3 Seconds Height, Weight, BMI Height: 5'3.00" Weight: 144lbs. 4.0oz. 65.102647lp; 26.00 BMI Method:Stated General Appearance: WD/WN, no apparent distress HEENT: PERRL/EOMI, pharynx normal Neck: normal inspection Respiratory: lungs clear, normal breath sounds, no respiratory distress, no accessory muscle use Cardiovascular: regular rate, rhythm Gastrointestinal: normal bowel sounds, non tender, soft Extremities: normal range of motion, normal inspection, no pedal edema Neurologic/Psychiatric: oriented x 3, other (somnolent; arouses to voice but will not stay alert; hint of slurred speech; oriented to self; year and location; ) Crainal Nerves: normal hearing, normal speech, PERRL; No abnormal pupil position; abnormal speech (slightly slurred); No facial asymmetry, No facial weakness, No tongue deviation to R, No tongue deviation to L Motor/Sensory: no motor deficit, no sensory deficit; No sensory deficit, No weak motor strength RUE, No weak motor strength LUE, No weak motor strength RLE, No weak motor strength LLE Skin: normal color, warm/dry Stroke Onset of Symptoms Date of Onset of Symptoms: Dec 31, 2022 Time of Symptom Onset: 10:45 Onset of Symptoms: Yes Symptoms onset unknown: No NIH Stroke Scale Assessment Select: Initial Level of Consciousness: 1=Aroused by mild stimuli (1), Level of Consciousness-Questions: 0=Answers both month/age (0), LOC Commands: 0=Performs both tasks (0), Gaze: Normal (0), Facial Movement (Facial Paresis): 0=Normal symmetrical mnt (0), Motor Function-Arms Right: 0=No drift (0), Motor Function-Arms Left: 0=No drift (0), Motor Function-Legs Right: 0=No drift (0), Motor Function-Legs Left: 0=No drift (0), Limb Ataxia: 0=Absent (0), Sensory: 0=Normal:no loss (0), Best Language: 0=No aphasia (0), Dysarthria: 1=Mild to moderate loss (1), Extinction & Inattention: 0=No abnormality (0), Total: 2 Stroke Thrombolytic Exclusion Age 18 or Over: Yes Acute intenal hemorrhage: No History of CVA: No Uncontrolled Coagulation Defec: No Intracranial Hemorrhage: No Severe Hypertension: No GI or Bleed: No Subarachnoid Hemorrhage: No Intracranial Neoplasm/Aneurysm: No Oral Anticoagulants: No Surgery or Trauma: No Puncture of Non-Compressible V: No Recent CPR: No Diabetic Hemorrhagic Retinopat: No Organ Biopsy: No Recent Obstetric Delivery: No Glucose: No Significant Hepatic Dysfunctio: No NIH Stoke Scale >22: No Bacterial Endocarditis: No Pericarditis: No Improving Symptoms: No Platelets: No TPA Contraindication: No IV - TPa Received IV - TPa Procedure Performed?: No Progress/Results/Core Measures Results/Orders Lab Results Laboratory Tests Test 12/31/22 11:52 12/31/22 12:20 Range/Units Glucometer 184 H 70-110 MG/DL White Blood Count 10.2 4.3-11.0 10^3/uL Red Blood Count 3.91 3.80-5.11 10^6/uL Hemoglobin 11.5 11.5-16.0 g/dL Hematocrit 36 35-52 % Mean Corpuscular Volume 92 80-99 fL Mean Corpuscular Hemoglobin 29 25-34 pg Mean Corpuscular Hemoglobin Concent 32 32-36 g/dL Red Cell Distribution Width 13.0 10.0-14.5 % Platelet Count 261 130-400 10^3/uL Mean Platelet Volume 9.2 9.0-12.2 fL Immature Granulocyte % (Auto) 0 % Neutrophils (%) (Auto) 67 42-75 % Lymphocytes (%) (Auto) 26 12-44 % Monocytes (%) (Auto) 5 0-12 % Eosinophils (%) (Auto) 2 0-10 % Basophils (%) (Auto) 0 0-10 % Neutrophils # (Auto) 6.8 1.8-7.8 10^3/uL Lymphocytes # (Auto) 2.6 1.0-4.0 10^3/uL Monocytes # (Auto) 0.5 0.0-1.0 10^3/uL Eosinophils # (Auto) 0.2 0.0-0.3 10^3/uL Basophils # (Auto) 0.0 0.0-0.1 10^3/uL Immature Granulocyte # (Auto) 0.0 0.0-0.1 10^3/uL Prothrombin Time 12.4 12.2-14.7 SEC INR Comment 0.9 0.8-1.4 Activated Partial Thromboplast Time 34 24-35 SEC D-Dimer 0.31 0.00-0.49 UG/ML Urine Color YELLOW Urine Clarity CLOUDY Urine pH 6.0 5-9 Urine Specific [place] >=1.030 1.016-1.022 Urine Protein 1+ H NEGATIVE Urine Glucose (UA) TRACE H NEGATIVE Urine Ketones NEGATIVE NEGATIVE Urine Nitrite POSITIVE H NEGATIVE Urine Bilirubin NEGATIVE NEGATIVE Urine Urobilinogen 0.2 < = 1.0 MG/DL Urine Leukocyte Esterase 2+ H NEGATIVE Urine RBC (Auto) 1+ H NEGATIVE Urine RBC 2-5 H /HPF Urine WBC TNTC H /HPF Urine Squamous Epithelial Cells NONE /HPF Urine Crystals NONE /LPF Urine Bacteria LARGE H /HPF Urine Casts NONE /LPF Urine Mucus NEGATIVE /LPF Urine Culture Indicated YES Sodium Level 140 135-145 MMOL/L Potassium Level 4.2 3.6-5.0 MMOL/L Chloride Level 109 H 98-107 MMOL/L Carbon Dioxide Level 22 21-32 MMOL/L Anion Gap 9 5-14 MMOL/L Blood Urea Nitrogen 14 7-18 MG/DL Creatinine 1.09 0.60-1.30 MG/DL Estimat Glomerular Filtration Rate 51 BUN/Creatinine Ratio 13 Glucose Level 179 H 70-105 MG/DL Calcium Level 9.0 8.5-10.1 MG/DL Corrected Calcium 9.2 8.5-10.1 MG/DL Total Bilirubin 0.1 0.1-1.0 MG/DL Aspartate Amino Transf (AST/SGOT) 14 5-34 U/L Alanine Aminotransferase (ALT/SGPT) 14 0-55 U/L Alkaline Phosphatase 90 40-136 U/L Troponin I < 0.028 <0.028 NG/ML Total Protein 6.4 6.4-8.2 GM/DL Albumin 3.7 3.2-4.5 GM/DL Thyroid Stimulating Hormone (TSH) 0.29 L 0.35-4.94 UIU/ML Urine Opiates Screen NEGATIVE NEGATIVE Urine Oxycodone Screen NEGATIVE NEGATIVE Urine Methadone Screen NEGATIVE NEGATIVE Urine Propoxyphene Screen NEGATIVE NEGATIVE Urine Barbiturates Screen NEGATIVE NEGATIVE Ur Tricyclic Antidepressants Screen NEGATIVE NEGATIVE Urine Phencyclidine Screen NEGATIVE NEGATIVE Urine Amphetamines Screen NEGATIVE NEGATIVE Urine Methamphetamines Screen NEGATIVE NEGATIVE Urine Benzodiazepines Screen NEGATIVE NEGATIVE Urine Cocaine Screen NEGATIVE NEGATIVE Urine Cannabinoids Screen NEGATIVE NEGATIVE Micro Results Microbiology 12/31/22 Urine Culture - Preliminary, Resulted Gram Negative Bacillus 1 My Orders Orders - PETERSON TORRES MD Cbc With Automated Diff (12/31/22 11:53) Protime With Inr (12/31/22 11:53) Partial Thromboplastin Time (12/31/22 11:53) Comprehensive Metabolic Panel (12/31/22 11:53) Fibrin Degradation Products (12/31/22 11:53) Troponin I [place] (12/31/22 11:53) Ua Culture If Indicated (12/31/22 11:53) Chest 1 View, Ap/Pa Only (12/31/22 11:53) Catheter(Urinary) Insert & Ass 03,15 (12/31/22 11:53) Ekg Tracing (12/31/22 11:53) Nothing By Mouth (12/31/22 Lunch) Accucheck Stat ONCE (12/31/22 11:53) Ed Iv/Invasive Line Start (12/31/22 11:53) Ed Iv/Invasive Line Start (12/31/22 11:53) Vital Signs Stroke Patient Q15M (12/31/22 11:53) Ct Head Wo-R/O Stroke (12/31/22 11:53) O2 (12/31/22 11:53) Monitor-Rhythm Ecg Trace Only (12/31/22 11:53) Dysphagia Screening Tool [id number] (12/31/22 11:53) Post Thrombolytic Adminstratio (12/31/22 11:53) Lipid Panel (01/01/23 06:00) Lidocaine 2% (Urojet) (Xylocaine Urojet) (12/31/22 12:00) Naloxone Injection (Narcan Injection) (12/31/22 12:00) Naloxone Injection (Narcan Injection) (12/31/22 11:56) Thyroid Stimulating Hormone (12/31/22 12:26) Urine Culture (12/31/22 12:20) Ceftriaxone Iv/Im (Rocephin Iv/Im) (12/31/22 13:15) Drug Screen Stat (Urine) (12/31/22 13:08) Ns Iv 1000 Ml (Sodium Chloride 0.9%) (12/31/22 13:33) Ed Admission (Communication) (12/31/22 13:57) Medications Given in ED Vital Signs/I&O 12/31/22 12/31/22 12/31/22 11:46 15:05 15:10 Temp 37.6 Pulse 86 78 Resp 16 15 B/P (MAP) 128/64 (85) 116/61 Pulse Ox 94 91 99 O2 Delivery Room Air Room Air High Flow N/C O2 Flow Rate 2.00 01/01/23 00:00 Intake Total 1050 ml Balance 1050 ml Blood Pressure Mean: 85 Progress Progress Note : Time: 13:55 Initial ECG Impression Date: Dec 31, 2022 Initial ECG Impression Time: 11:49 Initial ECG Rate: 84 Initial ECG Rhythm: Normal Sinus Comment poor r wave progression over the precordium; normal intervals; Q waves inferiorly; no ST elevation/depression Diagnostic Imaging Diagonstic Imaging: Xray Plain Films/CT/US/NM/MRI: chest Comments [facility] [place], [place] NAME: MICHAEL GOODMAN [facility] REC#: [id number] PT STATUS: REG ER : 1940 PHYSICIAN: PETERSON TORRES MD ADMIT DATE: 12/31/22/ER Signed Date of Exam:12/31/22 CHEST 1 VIEW, AP/PA ONLY INDICATION: Multiple episodes of syncope Single AP view of the chest is obtained. There is no previous study for comparison. There is suboptimal inspiration. Heart size and pulmonary vascularity are at the upper limits of normal. There is no evidence of pneumothorax or consolidation. Surgical clips are seen in the lower neck and upper chest. IMPRESSION: Heart size and pulmonary vascularity are at the upper limits of normal without evidence of overt edema or other acute abnormality. Dictated by: Dictated on workstation # [id number] Dict: 12/31/22 1321 Trans: 12/31/22 1426 [facility] [id number] Interpreted by: CELESTE ACEVES MD Electronically signed by: CELESTE ACEVES MD 12/31/22 1426 Diagonstic Imaging: CT Comments [facility] [place] [place] NAME: MICHAEL GOODMAN [facility] REC#: [id number] PT STATUS: REG ER : 1940 PHYSICIAN: PETERSON TORRES MD ADMIT DATE: 12/31/22/ER Signed Date of Exam:12/31/22 CT HEAD WO-R/O STROKE INDICATION: Unspecified neurologic deficit, altered mental status. TECHNIQUE: Multiple contiguous axial images were obtained through the brain without the use of intravenous contrast. Auto Exposure Controls were utilized during the CT exam to meet ALARA standards for radiation dose reduction. COMPARISON: There is no prior study for comparison. FINDINGS: There are no extra-axial fluid collections. No intracranial hemorrhage. No intracranial mass or mass effect. No midline shift. The ventricles are normal in size and position. There are mild chronic changes in the deep white matter. Calvarial windows were unremarkable. IMPRESSION: No acute intracranial abnormality is detected. Please correlate with clinical history. Dictated by: Dictated on workstation # [id number] Dict: 12/31/22 1210 Trans: 12/31/22 1225 [facility] [id number] Interpreted by: CHARLES HAIR MD Electronically signed by: CHARLES HAIR MD 12/31/22 1225 Departure Communication (Admissions) Time/Spoke to Admitting Phy: 13:[address] Dillard ([facility] Hospitalist) accepts to Cardiac Stepdown Obs with cards consult Impression Primary Impression: Syncope Qualified Codes: R55 - Syncope and collapse Additional Impressions: UTI (urinary tract infection) Qualified Codes: N30.01 - Acute cystitis with hematuria Altered mental status Qualified Codes: R40.0 - Somnolence Disposition: 01 HOME, SELF-CARE Condition: Stable Admissions Decision to Admit Reason: Admit from ER (General) Decision to Admit/Date: Dec 31, 2022 Time/Decision to Admit Time: 13:54 Departure-Patient Inst. Referrals: VICKEY BECKTET DO (PCP) Primary Care Physician JOSSELIN,TANVI SAL[employer]ATIONSHIP MANAGER (Family) Primary Care Physician PETERSON TORRES MD Dec 31, 2022 11:53
[2022-12-31] MEDS ORDERED: NALOXONE 0.4 MG/ML 1 ML (NARCAN) VIAL ONE (11:56)
[2022-12-31] MEDS ORDERED: LIDOCAINE UROJET 2% GEL 10 ML PKG TOP ONE (12:00)
[2022-12-31] MEDS ORDERED: NALOXONE 0.4 MG/ML 1 ML (NARCAN) VIAL IV ONE (12:00)
--- NOTE | 2022-12-31 12:21 | Diagnostic Imaging Report ---
INDICATION: Unspecified neurologic deficit, altered mental status. TECHNIQUE: Multiple contiguous axial images were obtained through the brain without the use of intravenous contrast. Auto Exposure Controls were utilized during the CT exam to meet ALARA standards for radiation dose reduction. COMPARISON: There is no prior study for comparison. FINDINGS: There are no extra-axial fluid collections. No intracranial hemorrhage. No intracranial mass or mass effect. No midline shift. The ventricles are normal in size and position. There are mild chronic changes in the deep white matter. Calvarial windows were unremarkable. IMPRESSION: No acute intracranial abnormality is detected. Please correlate with clinical history. Dictated by: Dictated on workstation # [id number]
[2022-12-31 12:28] LABS: BASOPHILS % (AUTO) 0 % (0-10); EOSINOPHILS # (AUTO) 0.2 10^3/uL (0.0-0.3); EOSINOPHILS % (AUTO) 2 % (0-10); HEMATOCRIT 36 % (35-52); HEMOGLOBIN 11.5 g/dL (11.5-16.0); LYMPHOCYTES # (AUTO) 2.6 10^3/uL (1.0-4.0); LYMPHOCYTES % (AUTO) 26 % (12-44); MEAN CORPUSCULAR HEMOGLOBIN 29 pg (25-34); MEAN CORPUSCULAR HGB CONC 32 g/dL (32-36); MEAN CORPUSCULAR VOLUME 92 fL (80-99); MEAN PLATELET VOLUME 9.2 fL (9.0-12.2); MONOCYTES # (AUTO) 0.5 10^3/uL (0.0-1.0); MONOCYTES % (AUTO) 5 % (0-12); NEUTROPHILS # (AUTO) 6.8 10^3/uL (1.8-7.8); NEUTROPHILS % (AUTO) 67 % (42-75); PLATELET COUNT 261 10^3/uL (130-400); WHITE BLOOD COUNT 10.2 10^3/uL (4.3-11.0)
[2022-12-31 12:33] LABS: BILIRUBIN,URINE NEGATIVE (NEGATIVE); CLARITY,URINE CLOUDY; COLOR,URINE YELLOW; GLUCOSE, URINE (UA) TRACE (NEGATIVE); KETONES,URINE NEGATIVE (NEGATIVE); LEUKOCYTE ESTERASE ,URINE 2+ (NEGATIVE); NITRITE,URINE POSITIVE (NEGATIVE); PROTEIN,URINE 1+ (NEGATIVE)
[2022-12-31 12:38] LABS: ALBUMIN 3.7 GM/DL (3.2-4.5); CHLORIDE 109 MMOL/L (98-107); POTASSIUM 4.2 MMOL/L (3.6-5.0); SODIUM 140 MMOL/L (135-145)
[2022-12-31 12:39] LABS: INR 0.9 (0.8-1.4); PROTHROMBIN TIME PATIENT 12.4 SEC (12.2-14.7)
[2022-12-31 12:40] LABS: GLUCOSE 179 MG/DL (70-105); TOTAL PROTEIN 6.4 GM/DL (6.4-8.2)
[2022-12-31 12:41] LABS: CARBON DIOXIDE 22 MMOL/L (21-32)
[2022-12-31 12:42] LABS: BILIRUBIN,TOTAL 0.1 MG/DL (0.1-1.0); FIBRIN DEGRADATION PRODUCTS 0.31 UG/ML (0.00-0.49)
[2022-12-31 12:44] LABS: ALKALINE PHOSPHATASE 90 U/L (40-136); CREATININE SERUM 1.09 MG/DL (0.60-1.30); GFR ESTIMATED 51
[2022-12-31 12:45] LABS: BUN/CREATININE RATIO 13
[2022-12-31 12:47] LABS: ALANINE AMINOTRANSFERASE 14 U/L (0-55)
[2022-12-31 13:03] LABS: BACTERIA,URINE LARGE /HPF; WBC,URINE TNTC /HPF
[2022-12-31] MEDS ORDERED: cefTRIAXone IV/IM 1,000 MG in NS (IVPB) 50 ML 50 ML IV ONE (13:15)
[2022-12-31 13:25] LABS: AMPHETAMINE SCREEN, URINE NEGATIVE (NEGATIVE); BARBITURATE SCREEN URINE NEGATIVE (NEGATIVE); BENZODIAZEPINES SCREEN URINE NEGATIVE (NEGATIVE); CANNABINOID SCREEN, URINE NEGATIVE (NEGATIVE); COCAINE SCREEN URINE NEGATIVE (NEGATIVE); METHADONE STAT NEGATIVE (NEGATIVE); OPIATE SCREEN URINE NEGATIVE (NEGATIVE); OXYCODONE STAT NEGATIVE (NEGATIVE); PROPOXYPHENE STAT NEGATIVE (NEGATIVE); TRICYCLIC ANTIDEPRESSANTS SCRE NEGATIVE (NEGATIVE)
[2022-12-31] MEDS ORDERED: NS IV 1000 ML 1,000 ML IV STA (13:33)
--- NOTE | 2022-12-31 13:36 | Diagnostic Imaging Report ---
INDICATION: Multiple episodes of syncope Single AP view of the chest is obtained. There is no previous study for comparison. There is suboptimal inspiration. Heart size and pulmonary vascularity are at the upper limits of normal. There is no evidence of pneumothorax or consolidation. Surgical clips are seen in the lower neck and upper chest. IMPRESSION: Heart size and pulmonary vascularity are at the upper limits of normal without evidence of overt edema or other acute abnormality. Dictated by: Dictated on workstation # [id number]
[2022-12-31] MEDS ORDERED: MELATONIN 3 MG TABLET PO PRN (15:30)
[2022-12-31] MEDS ORDERED: LACTULOSE SYRUP 10GM/15ML (ENULOSE) 30ML UDC PO PRN (15:30)
[2022-12-31] MEDS ORDERED: polyethylene glycoL POWDER 17 GM (MIRALAX) PACK PO PRN (15:30)
[2022-12-31] MEDS ORDERED: diphenhydrAMINE 50 MG/ML INJ (BENADRYL) IVP PRN (15:30)
[2022-12-31] MEDS ORDERED: ACETAMINOPHEN 325 MG TABLET PO PRN (15:30)
[2022-12-31] MEDS ORDERED: ONDANSETRON 4 MG/2 ML (SDV) Z0FRAN IV PRN (15:30)
[2022-12-31] MEDS ORDERED: ANTACID SUSP 30 ML UDC (MYLANTA) PO PRN (15:30)
[2022-12-31] MEDS ORDERED: ONDANSETRON 4 MG (ZOFRAN) ORAL DISSOLVE TAB PO PRN (15:30)
[2022-12-31] MEDS ORDERED: ENOXAPARIN 40 MG/0.4 ML (LOVENOX) SYR SC SCH (15:30)
[2022-12-31] MEDS ORDERED: diphenhydrAMINE 25 MG TAB (BENADRYL) PO PRN (15:30)
[2022-12-31] MEDS ORDERED: CALCIUM CARBONATE 500 MG CHEW TABLET PO PRN (15:30)
[2022-12-31] MEDS ORDERED: BISACODYL 10 MG SUPPOSITORY PR PRN (15:30)
[2022-12-31] MEDS ORDERED: HYDROmorphone 2 MG/ML VIAL (DILAUDID) IV PRN (15:30)
[2022-12-31] MEDS ORDERED: MILK OF MAGNESIA 400 MG/5 ML 30 ML UDC PO PRN (15:30)
[2022-12-31] MEDS: NS IV 1000 ML 1,000 ML IV SCH ×2 (15:46→23:12)
[2022-12-31] MEDS: inSUlin ASPART (NovoLOG) 1 UNIT/0.01 ML (CHARGE PER UNIT) SC SCH ×2 (15:47→20:55)
[2022-12-31] MEDS ORDERED: RT-ALBUTEROL SULF 2.5 MG/3 ML PRE-MIX VIAL INH PRN (16:00)
[2022-12-31] MEDS: DOCUSATE SODIUM 100 MG CAPSULE PO SCH (20:37)
[2022-12-31] MEDS: SENNOSIDES 8.6 MG (SENOKOT) TAB PO SCH (20:38)
[2022-12-31] MEDS ORDERED: GABAPENTIN 100 MG (NEURONTIN) CAP ONE (21:23)
[2023-01-01 03:16] VITALS: BP 135/50
[2023-01-01 04:58] LABS: BASOPHILS % (AUTO) 1 % (0-10); EOSINOPHILS # (AUTO) 0.2 10^3/uL (0.0-0.3); EOSINOPHILS % (AUTO) 3 % (0-10); HEMATOCRIT 34 % (35-52); HEMOGLOBIN 10.8 g/dL (11.5-16.0); LYMPHOCYTES # (AUTO) 2.7 10^3/uL (1.0-4.0); LYMPHOCYTES % (AUTO) 33 % (12-44); MEAN CORPUSCULAR HEMOGLOBIN 29 pg (25-34); MEAN CORPUSCULAR HGB CONC 32 g/dL (32-36); MEAN CORPUSCULAR VOLUME 92 fL (80-99); MEAN PLATELET VOLUME 9.3 fL (9.0-12.2); MONOCYTES # (AUTO) 0.6 10^3/uL (0.0-1.0); MONOCYTES % (AUTO) 7 % (0-12); NEUTROPHILS # (AUTO) 4.6 10^3/uL (1.8-7.8); NEUTROPHILS % (AUTO) 56 % (42-75); PLATELET COUNT 216 10^3/uL (130-400); WHITE BLOOD COUNT 8.1 10^3/uL (4.3-11.0)
[2023-01-01 05:11] LABS: ALBUMIN 3.1 GM/DL (3.2-4.5)
[2023-01-01 05:12] LABS: CALCIUM 8.2 MG/DL (8.5-10.1)
[2023-01-01 05:13] LABS: TOTAL PROTEIN 5.3 GM/DL (6.4-8.2)
[2023-01-01 05:15] LABS: BILIRUBIN,TOTAL 0.1 MG/DL (0.1-1.0)
[2023-01-01 05:17] LABS: CREATININE SERUM 0.82 MG/DL (0.60-1.30)
[2023-01-01] MEDS: inSUlin ASPART (NovoLOG) 1 UNIT/0.01 ML (CHARGE PER UNIT) SC SCH ×2 (05:26→11:19)
[2023-01-01] MEDS: NS IV 1000 ML 1,000 ML IV SCH (07:24)
[2023-01-01 08:00] VITALS: BP 147/69
[2023-01-01] MEDS: SENNOSIDES 8.6 MG (SENOKOT) TAB PO SCH (09:00)
[2023-01-01] MEDS: DOCUSATE SODIUM 100 MG CAPSULE PO SCH (09:00)
--- NOTE | 2023-01-01 11:22 | Consultation-Cardiology ---
HPI-Cardiology Cardiology Consultation Date of Consultation 01/01/23 Date of Admission Time Seen by Provider: 11:19 Indication: Syncope HPI 82-year-old lady with history of hypertension, hyperlipidemia and diabetes mellitus. Had been doing well. Patient had a syncopal episode yesterday afternoon she was standing up. EMS were called and she had another syncope while she was laying on the stretcher in the ambulance, her vitals were stable, blood pressure and heart rate were stable. I came to her room yesterday and she was sleepy and lethargic open her eyes and respond appropriately but extremely tired. This morning she was feeling significantly better, she is sitting talkative and asymptomatic. No similar episode in the past. Home Medications & Allergies Allergies: Coded Allergies: No Known Drug Allergies (Unverified , 02/01/17) Home Medication List Reviewed: Yes ERX-Jqrgfk-Ktfvid Hx Patient Social History Marital Status: Employed/Student: employed Smoking Status: Former Smoker 2nd Hand Smoke Exposure: No Recent Hopitalizations: No Alcohol Use?: No Immunizations Up To Date Tetanus Booster (TDap): Unknown Date of Pneumonia Vaccine: Feb 17, 2016 Date of Influenza Vaccine: Feb 17, 2016 Past Medical History Discussed below Family Medical History Significant Family History: No Pertinent Family Hx Family History: Cancer 19 MOTHER G8 BROTHER G8 SISTER Family history: Cardiovascular disease 19 MOTHER Family history: Diabetes mellitus 19 MOTHER History of - disorder G8 BROTHER (MS ) Review of Systems-General Review of Systems Constitutional: see HPI EENTM: see HPI, no symptoms reported Respiratory: no symptoms reported Cardiovascular: no symptoms reported Gastrointestinal: no symptoms reported Genitourinary: no symptoms reported Musculoskeletal: no symptoms reported Skin: no symptoms reported Psychiatric/Neurological: No Symptoms Reported, See HPI All Other Systems Reviewed Negative Unless Noted: Yes Reviewed Test Results Reviewed Test Results Lab Laboratory Tests Test 12/31/22 11:52 12/31/22 12:20 12/31/22 15:47 12/31/22 20:48 Range/Units Glucometer 184 H 101 207 H 70-110 MG/DL White Blood Count 10.2 4.3-11.0 10^3/uL Red Blood Count 3.91 3.80-5.11 10^6/uL Hemoglobin 11.5 11.5-16.0 g/dL Hematocrit 36 35-52 % Mean Corpuscular Volume 92 80-99 fL Mean Corpuscular Hemoglobin 29 25-34 pg Mean Corpuscular Hemoglobin Concent 32 32-36 g/dL Red Cell Distribution Width 13.0 10.0-14.5 % Platelet Count 261 130-400 10^3/uL Mean Platelet Volume 9.2 9.0-12.2 fL Immature Granulocyte % (Auto) 0 % Neutrophils (%) (Auto) 67 42-75 % Lymphocytes (%) (Auto) 26 12-44 % Monocytes (%) (Auto) 5 0-12 % Eosinophils (%) (Auto) 2 0-10 % Basophils (%) (Auto) 0 0-10 % Neutrophils # (Auto) 6.8 1.8-7.8 10^3/uL Lymphocytes # (Auto) 2.6 1.0-4.0 10^3/uL Monocytes # (Auto) 0.5 0.0-1.0 10^3/uL Eosinophils # (Auto) 0.2 0.0-0.3 10^3/uL Basophils # (Auto) 0.0 0.0-0.1 10^3/uL Immature Granulocyte # (Auto) 0.0 0.0-0.1 10^3/uL Prothrombin Time 12.4 12.2-14.7 SEC INR Comment 0.9 0.8-1.4 Activated Partial Thromboplast Time 34 24-35 SEC D-Dimer 0.31 0.00-0.49 UG/ML Urine Color YELLOW Urine Clarity CLOUDY Urine pH 6.0 5-9 Urine Specific [place] >=1.030 1.016-1.022 Urine Protein 1+ H NEGATIVE Urine Glucose (UA) TRACE H NEGATIVE Urine Ketones NEGATIVE NEGATIVE Urine Nitrite POSITIVE H NEGATIVE Urine Bilirubin NEGATIVE NEGATIVE Urine Urobilinogen 0.2 < = 1.0 MG/DL Urine Leukocyte Esterase 2+ H NEGATIVE Urine RBC (Auto) 1+ H NEGATIVE Urine RBC 2-5 H /HPF Urine WBC TNTC H /HPF Urine Squamous Epithelial Cells NONE /HPF Urine Crystals NONE /LPF Urine Bacteria LARGE H /HPF Urine Casts NONE /LPF Urine Mucus NEGATIVE /LPF Urine Culture Indicated YES Sodium Level 140 135-145 MMOL/L Potassium Level 4.2 3.6-5.0 MMOL/L Chloride Level 109 H 98-107 MMOL/L Carbon Dioxide Level 22 21-32 MMOL/L Anion Gap 9 5-14 MMOL/L Blood Urea Nitrogen 14 7-18 MG/DL Creatinine 1.09 0.60-1.30 MG/DL Estimat Glomerular Filtration Rate 51 BUN/Creatinine Ratio 13 Glucose Level 179 H 70-105 MG/DL Calcium Level 9.0 8.5-10.1 MG/DL Corrected Calcium 9.2 8.5-10.1 MG/DL Total Bilirubin 0.1 0.1-1.0 MG/DL Aspartate Amino Transf (AST/SGOT) 14 5-34 U/L Alanine Aminotransferase (ALT/SGPT) 14 0-55 U/L Alkaline Phosphatase 90 40-136 U/L Troponin I < 0.028 <0.028 NG/ML Total Protein 6.4 6.4-8.2 GM/DL Albumin 3.7 3.2-4.5 GM/DL Thyroid Stimulating Hormone (TSH) 0.29 L 0.35-4.94 UIU/ML Urine Opiates Screen NEGATIVE NEGATIVE Urine Oxycodone Screen NEGATIVE NEGATIVE Urine Methadone Screen NEGATIVE NEGATIVE Urine Propoxyphene Screen NEGATIVE NEGATIVE Urine Barbiturates Screen NEGATIVE NEGATIVE Ur Tricyclic Antidepressants Screen NEGATIVE NEGATIVE Urine Phencyclidine Screen NEGATIVE NEGATIVE Urine Amphetamines Screen NEGATIVE NEGATIVE Urine Methamphetamines Screen NEGATIVE NEGATIVE Urine Benzodiazepines Screen NEGATIVE NEGATIVE Urine Cocaine Screen NEGATIVE NEGATIVE Urine Cannabinoids Screen NEGATIVE NEGATIVE Test 01/01/23 04:37 01/01/23 10:47 Range/Units White Blood Count 8.1 4.3-11.0 10^3/uL Red Blood Count 3.74 L 3.80-5.11 10^6/uL Hemoglobin 10.8 L 11.5-16.0 g/dL Hematocrit 34 L 35-52 % Mean Corpuscular Volume 92 80-99 fL Mean Corpuscular Hemoglobin 29 25-34 pg Mean Corpuscular Hemoglobin Concent 32 32-36 g/dL Red Cell Distribution Width 12.9 10.0-14.5 % Platelet Count 216 130-400 10^3/uL Mean Platelet Volume 9.3 9.0-12.2 fL Immature Granulocyte % (Auto) 0 % Neutrophils (%) (Auto) 56 42-75 % Lymphocytes (%) (Auto) 33 12-44 % Monocytes (%) (Auto) 7 0-12 % Eosinophils (%) (Auto) 3 0-10 % Basophils (%) (Auto) 1 0-10 % Neutrophils # (Auto) 4.6 1.8-7.8 10^3/uL Lymphocytes # (Auto) 2.7 1.0-4.0 10^3/uL Monocytes # (Auto) 0.6 0.0-1.0 10^3/uL Eosinophils # (Auto) 0.2 0.0-0.3 10^3/uL Basophils # (Auto) 0.0 0.0-0.1 10^3/uL Immature Granulocyte # (Auto) 0.0 0.0-0.1 10^3/uL Sodium Level 142 135-145 MMOL/L Potassium Level 4.0 3.6-5.0 MMOL/L Chloride Level 113 H 98-107 MMOL/L Carbon Dioxide Level 23 21-32 MMOL/L Anion Gap 6 5-14 MMOL/L Blood Urea Nitrogen 12 7-18 MG/DL Creatinine 0.82 0.60-1.30 MG/DL Estimat Glomerular Filtration Rate 72 BUN/Creatinine Ratio 15 Glucose Level 121 H 70-105 MG/DL Calcium Level 8.2 L 8.5-10.1 MG/DL Corrected Calcium 8.9 8.5-10.1 MG/DL Total Bilirubin 0.1 0.1-1.0 MG/DL Aspartate Amino Transf (AST/SGOT) 13 5-34 U/L Alanine Aminotransferase (ALT/SGPT) 12 0-55 U/L Alkaline Phosphatase 76 40-136 U/L Total Protein 5.3 L 6.4-8.2 GM/DL Albumin 3.1 L 3.2-4.5 GM/DL Triglycerides Level 305 H <150 MG/DL Cholesterol Level 135 < 200 MG/DL LDL Cholesterol Direct 57 1-129 MG/DL VLDL Cholesterol 61 H 5-40 MG/DL HDL Cholesterol 28 L 40-60 MG/DL Glucometer 178 H 70-110 MG/DL Physical Exam Physical Exam Vital Signs Vital Signs - First Documented 12/31/22 12/31/22 12/31/22 11:46 15:10 15:51 Temp 37.6 Pulse 86 Resp 16 B/P (MAP) 128/64 (85) Pulse Ox 94 O2 Delivery Room Air O2 Flow Rate 2.00 FiO2 28 Capillary Refill : Less Than 3 Seconds Height, Weight, BMI Height: 5'3.00" Weight: 144lbs. 4.0oz. [id number]; 28.90 BMI Method:Stated General Appearance: No Apparent Distress, WD/WN Eyes: Bilateral Eye Normal Inspection, Bilateral Eye PERRL, Bilateral Eye EOMI HEENT: PERRL/EOMI, TMs Normal, Normal ENT Inspection, Pharynx Normal, Moist Mucous Membranes Neck: Full Range of Motion, Normal Inspection, Non Tender, Supple, Carotid Bruit Respiratory: Chest Non Tender, Normal Breath Sounds, No Accessory Muscle Use, No Respiratory Distress Cardiovascular: Regular Rate, Rhythm, No Edema, No Gallop, No JVD, No Murmur, Normal Peripheral Pulses Gastrointestinal: Normal Bowel Sounds, No Organomegaly, No Pulsatile Mass, Non Tender, Soft Back: Normal Inspection, No CVA Tenderness, No Vertebral Tenderness Extremity: Normal Capillary Refill, Normal Inspection, Normal Range of Motion, Non Tender, No Calf Tenderness, No Pedal Edema Neurologic/Psychiatric: Alert, Oriented x3, No Motor/Sensory Deficits, Normal Mood/Affect Skin: Normal Color, Warm/Dry Lymphatic: No Adenopathy A/P-Cardiology Admission Diagnosis Syncope Hypertension Hyperlipidemia Diabetes mellitus Assessment/Plan Syncope, unknown etiology, no arrhythmia detected 2D echo showed normal LV size and function with normal ejection fraction Heart rate and blood pressure were stable, had a syncopal episode while she was laying down on the stretcher with monitor in the ambulance Unknown etiology, most probably due to hypoglycemic episode Or secondary to medications, patient is on gabapentin and sertraline History of dyspnea on exertion, no change from baseline Hypertension, controlled. Currently medication on hold, blood pressure is moderately elevated Hyperlipidemia, monitor lipids Hypothyroidism, followed and managed by primary care physician Mild carotid stenosis, last ultrasound was done in July 2020. History of peripheral neuropathy, maintained on Neurontin Degenerative joint disease Okay for discharge from cardiology standpoint Clinical Quality Measures Stroke: Date of last known well: Dec 31, 2022 Time of last known well: 10:45 Symptoms onset unknown: No KAREN RUSS MD Jan 01, 2023 11:22
[2023-01-01] MEDS ORDERED: METF-397 PO (11:47)
[2023-01-01] MEDS ORDERED: CHOL10007 PO (11:47)
[2023-01-01] MEDS ORDERED: IBUP-30 PO (11:47)
[2023-01-01] MEDS ORDERED: UBID100C17 PO (11:47)
[2023-01-01] MEDS ORDERED: GABA300C PO (11:47)
[2023-01-01] MEDS ORDERED: ATOR80TA76 PO (11:47)
[2023-01-01] MEDS ORDERED: MULT-1136 PO (11:47)
[2023-01-01] MEDS ORDERED: GABA600T PO (11:47)
[2023-01-01] MEDS ORDERED: CYAN500T8 PO (11:47)
[2023-01-01] MEDS ORDERED: SERT-414 PO (11:47)
[2023-01-01] MEDS ORDERED: HYDR12.56 PO (11:47)
[2023-01-01 12:00] VITALS: BP 166/73
[2023-01-01] MEDS ORDERED: CEFD300C3 PO (12:15)
[2023-01-01] MEDS ORDERED: cefTRIAXone IV/IM 1,000 MG in NS (IVPB) 50 ML 50 ML IV SCH (13:00)
--- NOTE | 2023-01-01 13:01 | Physical Therapy Evaluation ---
PT Evaluation-General Medical Diagnosis Admission Date Dec 31, 2022 at 15:11 Medical Diagnosis: AMS/syncope/UTI Onset Date: Dec 31, 2022 Therapy Diagnosis Therapy Diagnosis: debility Height/Weight Height (Feet): 5 Height (Inches): 3.00 Weight (Pounds): 144 Weight (Ounces): 4.0 Precautions Precautions/Isolations: Aspiration, Fall Prevention, Standard Precautions, Pressure Ulcer Referral Physician: Nishant Reason for Referral: Evaluation/Treatment Medical History Pertinent Medical History: DM, HTN, Hypothroidism Current History EMS secondary to "passed out at work" Reviewed History: Yes Social History Home: Single Level Current Living Status: Alone Prior Prior Level of Function SCALE: Activities may be completed with or without assistive devices. 7-Mmlrjknwme-nckgoqb completes the activity by him/herself with no assistance from a helper. 5-Set-up or Clean-up Assistance-helper sets up or cleans up; patient completes activity. [place] assists only prior to or following the activity. 4-Supervision or Touching Assistance-helper provides verbal cues and/or touching/steadying and/or contact guard assistance as patient completes activity. Assistance may be provided throughout the activity or intermittently. 3-Partial/Moderate Assistance-helper does LESS THAN HALF the effort. [place] lifts, holds or supports trunk or limbs, but provides less than half the effort. 2-Substantial/Maximal Assistance-helper does MORE THAN HALF the effort. [place] lifts or holds trunk or limbs and provides more than half the effort. 5-Zrovcinqn-obwjrr does ALL the effort. Patient does none of the effort to complete the activity. Or, the assistance of 2 or more helpers is required for the patient to complete the activity. If activity was not attempted, code reason: 7-Patient Refused. 9-Not Applicable-not attempted and the patient did not perform the activity before the current illness, exacerbation or injury. 10-Not Attempted due to Environmental Limitations-(lack of equipment, weather restraints, etc.). 88-Not Attempted due to Medical Conditions or Safety Concerns. Bed Mobility: 6 Transfers (B,C,W/C): 6 Gait: 6 Stairs: 6 Indoor Mobility (Ambulation): Independent Stairs: Independent Prior Devices Use: None PT Evaluation-Current Subjective Patient agrees to PT. Objective Patient Orientation: Normal For Age Attachments: IV ROM/Strength ROM Lower Extremities bilateral LE WFL Strength Lower Extremities 4/5 grossly bilateral LE all planes Integumentary/Posture Integumentary refer to nursing notes Bowel Incontinence: No Bladder Incontinence: No Posture WFL Neuromuscular (Tone, Coordination, Reflexes) grossly intact Sensory Vision: Wears Glasses Hearing: Impaired Transfers Lying to Sitting/Side of Bed(Q: 6 Sit to Stand (QC): 6 Chair/Pbi-we-Fybdh Xfer(QC): 6 Gait Mode of Locomotion: Walk Anticipated Mode of Locomotion: Walk Walk 10 feet (QC): 6 Walk 50 ft with 2 Turns(QC): 6 Walk 150 ft (QC): 6 Distance: 250' Gait Assistive Device: None Comments/Gait Description safe and functional with no deviation Balance Sitting Static: Normal Sitting Dynamic: Normal Standing Static: Normal Standing Dynamic: Normal Assessment/Needs Patient is currently at independent [facility] with all gross motor skills safely and does not require skilled PT intervention at this time. Rehab Potential: Fair PT Plan Treatment/Plan Treatment Plan: Discontinue PT Treatment Duration: Jan 01, 2023 Frequency: 1 time per week Estimated Hrs Per Day: .25 hour per day Patient and/or Family Agrees t: Yes Time Time In: 1145 Time Out: 1200 DATE: Jan 01, 2023 Total Billed Treatment Time: 15 Total Billed Treatment 1 visit EVMod 15 min JONO BUTLER PT Jan 01, 2023 13:01
--- NOTE | 2023-01-01 13:15 | Short Stay Summary-Hospitalist ---
DB OLMEDO 01/01/23 1315: History of Present Illness HPI/Chief Complaint Our patient is an 82 yo F with a history of asthma, hypercholesterolemia, hype rtension, hypothyroidism, and non-insulin dependent diabetes that presented to the ER for multiple episodes of syncope and unresponsiveness. EMS reports that during transport, she would become unresponsive mid-sentence and it took considerable effort to rouse her. On arrival to the ER, she was answering questions appropriately, her vital signs were stable and she noted no previous similar occurrences. Blood sugar prior to arrival was 276. No facial weakness or asymmetry was noted. Initial chest x-ray was unremarkable and a head CT showed no acute intracranial abnormalities. NIH stroke scale was a 2 with 1 point for mild dysarthria and 1 point for level of consciousness (aroused by mild stimu li). Urine collected on arrival was positive for nitrites, leukocyte esterase, blood, and a large amount of bacteria. She was then admitted to cardiac step- down for further evaluation and management. On interview this morning, she has had no further episodes of syncope and believes that it is likely related to spending a significant amount of time outside for the last few days. She notes difficulty starting a stream but denies urinary burning, chills, fever, shortness of breath, chest pain, or issues with her bowel movements. She is pleasant, cooperative, and eager to be discharged from the hospital. Source: patient, RN/MD, old records Exam Limitations: no limitations Date Seen 01/01/23 Time Seen by a Provider: 09:50 Attending Physician Angie Porter DO PCP Admitting Physician: Mariajose Cobb DO Attending Physician: Mariajose Cobb DO Referring Physician Date of Admission Dec 31, 2022 at 15:11 Home Medications & Allergies Home Medications Reviewed patient Home Medication Reconciliation performed by pharmacy medication reconciliations education technician and/or nursing. Patients Allergies have been reviewed. Allergies Allergies Coded Allergies No Known Drug Allergies (Unverified02/01/17) Past Medical/Social/Family Hx Patient Social History Marrital Status: Employed/Student: employed Tobacco Use?: No Tobacco type used: Cigarettes Smoking Status: Former Smoker Use of E-Cig and/or Vaping dev: No Substance use?: No Alcohol Use?: No Pt stated abuse/neglect: No Immunizations Up To Date Influenza Vaccine Up-to-Date: Yes; Up-to-Date Date of Pneumonia Vaccine: Feb 17, 2016 Current Status status: No status: No Advance Directives: Unable to obtain Communicates: Verbally Primary Language: [place] Preferred Spoken Language: [place] Is interpretation needed?: No Sensory deficits: Vision impairment, Hearing impairment Past Medical History Asthma, hyperhcolesterolemia, hypertension, hypothyroidism, non-insulin dependent diabetes Review of Systems Constitutional: No chills, No dizziness, No fever, No weakness EENTM: hearing loss (chronic) Respiratory: No cough, No dyspnea on exertion, No short of breath Cardiovascular: No chest pain, No palpitations, No syncope (No further events) Gastrointestinal: No abdominal pain, No constipation, No diarrhea, No nausea, No vomiting Genitourinary: decreased output; No dysuria : No Musculoskeletal: no symptoms reported Skin: no symptoms reported Psychiatric/Neurological: No Symptoms Reported; Denies Headache, Denies Numbne ss, Denies Weakness Physical Exam Physical Exam Vital Signs Vital Signs - First Documented 12/31/22 12/31/22 12/31/22 11:46 15:10 15:51 Temp 37.6 Pulse 86 Resp 16 B/P (MAP) 128/64 (85) Pulse Ox 94 O2 Delivery Room Air O2 Flow Rate 2.00 FiO2 28 Capillary Refill : Less Than 3 Seconds Height, Weight, BMI Height: 5'3.00" Weight: 144lbs. 4.0oz. 65.186260oa; 28.90 BMI Method:Stated General Appearance: No Apparent Distress, WD/WN Eyes: Bilateral Eye Normal Inspection, Bilateral Eye PERRL, Bilateral Eye EOMI HEENT: PERRL/EOMI, TMs Normal Neck: Normal Inspection, Non Tender, Supple, Carotid Bruit; No JVD, No Lymphadenopathy (L), No Lymphadenopathy (R) Respiratory: Chest Non Tender, Lungs Clear, Normal Breath Sounds, No Accessory Muscle Use, No Respiratory Distress Cardiovascular: Regular Rate, Rhythm, No Edema, No Gallop, No JVD, No Murmur, Normal Peripheral Pulses Gastrointestinal: Normal Bowel Sounds, No Organomegaly, No Pulsatile Mass, Non Tender, Soft Rectal: Deferred Back: Normal Inspection Extremity: Normal Capillary Refill, Normal Inspection, Non Tender, No Calf Tenderness, No Pedal Edema Neurologic/Psychiatric: Alert, Oriented x3, No Motor/Sensory Deficits, Normal Mood/Affect Skin: Normal Color, Warm/Dry Lymphatic: No Adenopathy Results Results/Procedures Labs Laboratory Tests 12/31/22 12:20 01/01/23 04:37 Patient resulted labs reviewed. Imaging: Reviewed Imaging Films, Reviewed Imaging Report Imaging Date of Exam:12/31/22 CHEST 1 VIEW, AP/PA ONLY INDICATION: Multiple episodes of syncope Single AP view of the chest is obtained. There is no previous study for comparison. There is suboptimal inspiration. Heart size and pulmonary vascularity are at the upper limits of normal. There is no evidence of pneumothorax or consolidation. Surgical clips are seen in the lower neck and upper chest. IMPRESSION: Heart size and pulmonary vascularity are at the upper limits of normal without evidence of overt edema or other acute abnormality. Dictated by: Dictated on workstation # [id number] Dict: 12/31/22 1321 Trans: 12/31/22 1426 [facility] [id number] Interpreted by: CELESTE ACEVES MD Electronically signed by: CELESTE ACEVES MD 12/31/22 1426 Date of Exam:12/31/22 CT HEAD WO-R/O STROKE INDICATION: Unspecified neurologic deficit, altered mental status. TECHNIQUE: Multiple contiguous axial images were obtained through the brain without the use of intravenous contrast. Auto Exposure Controls were utilized during the CT exam to meet ALARA standards for radiation dose reduction. COMPARISON: There is no prior study for comparison. FINDINGS: There are no extra-axial fluid collections. No intracranial hemorrhage. No intracranial mass or mass effect. No midline shift. The ventricles are normal in size and position. There are mild chronic changes in the deep white matter. Calvarial windows were unremarkable. IMPRESSION: No acute intracranial abnormality is detected. Please correlate with clinical history. Dictated by: Dictated on workstation # [id number] Dict: 12/31/22 1210 Trans: 12/31/22 1225 [facility] [id number] Interpreted by: CHARLES HAIR MD Electronically signed by: CHARLES HAIR MD 12/31/22 1225 Meds As indicated in medications list Short Stay Diagnosis Discharge Diagnosis-Short Stay Admission Diagnosis Syncope, episodes of unresponsiveness Final Discharge Diagnosis Syncope secondary to UTI Conclusion Plan Syncope, episodes of unresponsiveness Urinary tract infection with gram negative bacillus -Head CT showed no acute intracranial process -Glucose was high on arrival at [facility] -Patient quickly returned to baseline mental status after admission -Vitals remained stable throughout her stay -Evaluated by cardiology, 2D echocardiogram showed normal LV size and function with normal ejection fraction -Significant UTI discovered, results pending -Initially treated with ceftriaxone -Continue antibiotic therapy on discharge Hypertension -Blood pressure was somewhat elevated during stay -Continue antihypertensives on discharge Hyperlipidemia -Monitor lipids in outpatient setting -Continue home medications Hypothyroidism -Managed by primary care doctor -Continue levothyroxine Type II Diabetes Peripheral Neuropathy -Continue home medications on discharge -Continue gabapentin DVT Prophylaxis during admission: lovenox 40 mg Diet: regular Disposition: discharge from facility Clinical Quality Measures Stroke: Date of last known well: Dec 31, 2022 Time of last known well: 10:45 Symptoms onset unknown: No MARIAJOSE COBB DO 01/01/23 1425: Supervisory-Addendum Brief Verification & Attestation Participated in pt care: history, MDM, physical Personally performed: exam, history, MDM, supervision of care Care discussed with: Medical Student Procedures: n/a Results interpretation: Verified all documentation Verification and Attestation of Medical Student E/M Service A medical student performed and documented this service in my presence. I reviewed and verified all information documented by the medical student and made modifications to such information, when appropriate. I personally performed the physical exam and medical decision making. Mariajose Cobb, Jan 01, 2023,14:24 DB OLMEDO Jan 01, 2023 13:15 MARIAJOSE COBB DO Jan 01, 2023 14:25
[2023-01-01] MEDS ORDERED: GABAPENTIN 100 MG (NEURONTIN) CAP PO SCH (21:00)
== END 2023-01-01 14:10 | disposition home or self-care (01) ==
LOC: EDUNIT# 11:46 → ER 11:47 → CSD 15:11
PROVIDERS: ADMIT Internal Medicine; ATTEND Internal Medicine
DX: R55 Syncope and collapse (principal); N30.01 Acute cystitis with hematuria; B96.89 Other specified bacterial agents as the cause of diseases classified elsewhere; E78.5 Hyperlipidemia, unspecified; E11.42 Type 2 diabetes mellitus with diabetic polyneuropathy; E03.9 Hypothyroidism, unspecified; I10 Essential (primary) hypertension; I65.29 Occlusion and stenosis of unspecified carotid artery; M19.90 Unspecified osteoarthritis, unspecified site; Z79.899 Other long term (current) drug therapy; Z79.890 Hormone replacement therapy; Z87.891 Personal history of nicotine dependence
CPT/HCPCS: 51702; 70450; 71045; 80053 ×2; 80061; 80306; 81000; 82947 ×2; 84443; 84484; 85025 ×2; 85379; 85610; 85730; 87077; 87088; 87186; 93005; 93041; 97162; 99284; C8929; 36415; 93306; 96361; 96365; 96372; 96375